=== PATIENT | female | born 1975 | race Two or more races ===

== ENCOUNTER → 2017-04-02 | Outpatient (CLI) | payer BC ==
[~2017-04-02] MED LIST: HYDR25TAB PO; LISI10TA4; LORT1TAB PO; VICO5TAB
--- NOTE | 2017-04-02 10:06 | REP ---
Clinical: Pain. Technique: AP, lateral, coned-down views of the lumbar spine. Findings: Three views of the lumbosacral spine demonstrate satisfactory alignment and lordosis without acute fracture / compression injury or subluxation. Impression: No acute fracture / compression injury or subluxation. Signed by Ayan Vera MD 04/02/2017 09:58 A
== END ==
LOC: M ADAMS 09:29
PROVIDERS: ATTEND Physician Assistant
DX: M54.5 Low back pain (principal)

== ENCOUNTER → 2017-07-09 | Outpatient (REF) | payer BC ==
[2017-07-09 11:00] LABS: ALBUMIN 3.6 GM/DL (3.2-5.2); ALKALINE PHOSPHATASE 80 U/L (45-117); ALT/SGPT 47 U/L (12-78); ANION GAP 9 MEQ/L (8-16); AST/SGOT 21 U/L (15-37); BILIRUBIN,TOTAL 0.5 MG/DL (0.2-1.0); BLOOD UREA NITROGEN 11 MG/DL (7-18); CALCIUM LEVEL 8.7 MG/DL (8.5-10.1); CARBON DIOXIDE LEVEL 27 MEQ/L (21-32); CHLORIDE LEVEL 106 MEQ/L (98-107); CREATININE FOR GFR 0.72 MG/DL (0.55-1.02); FREE T4 0.88 NG/DL (0.76-1.46); GLOMERULAR FILTRATION RATE > 60.0 (>58); GLUCOSE, FASTING 81 MG/DL (70-105); POTASSIUM SERUM 3.9 MEQ/L (3.5-5.1); SODIUM LEVEL 142 MEQ/L (136-145); TOTAL PROTEIN 7.2 GM/DL (6.4-8.2)
== END ==
LOC: M SFHCADAM 09:57
PROVIDERS: ATTEND Family Medicine
DX: I10 Essential (primary) hypertension (principal); F32.9 Major depressive disorder, single episode, unspecified

== ENCOUNTER → 2017-07-17 | Outpatient (CLI) | payer BC ==
--- NOTE | 2017-07-17 13:40 | REPMRS ---
Patient History The patient states she has not had a clinical breast exam in over a year. No known family history of cancer. Digital Mammo Screening Bilat: July 17, 2017 - Exam #: [id number] Bilateral CC and MLO view(s) were taken. Technologist: Bibiana Vazquez, Technologist Prior study comparison: August 08, 2009, right breast digital mammo diagnostic unilateral performed at [facility]. February 13, 2009, digital mammo diagnostic bilateral performed at [facility]. FINDINGS: There are scattered fibroglandular densities. There has been no change in the appearance of the mammogram from the prior studies. There is a mild amount of scattered fibroglandular density which is fairly symmetric. There is no interval development of dominant mass, architectural distortion, or clustered microcalcification suggestive of malignancy. ASSESSMENT: BI-RADS/ACR category 1 mammogram. Negative. Recommendation Routine screening mammogram in 1 year (for women over age 40). This mammogram was interpreted with the aid of an FDA-approved computer-aided dectection system. Electronically Signed By: Kristopher Tanner MD 07/17/17 2204
== END ==
LOC: M RAD 12:45
PROVIDERS: ATTEND Family Medicine
DX: Z12.31 Encounter for screening mammogram for malignant neoplasm of breast (principal)

== ENCOUNTER → 2017-12-16 | Outpatient (REF) | payer BC ==
[2017-12-16 14:40] LABS: INFLUENZA A AMPLIFICATION NEGATIVE (NEGATIVE); INFLUENZA B AMPLIFICATION NEGATIVE (NEGATIVE)
== END ==
LOC: M LAB REF 13:15
DX: Z11.59 Encounter for screening for other viral diseases (principal)
CPT/HCPCS: 87502

== ENCOUNTER → 2018-01-19 | Outpatient (CLI) | payer BC | LOC: M WUC 11:54 | DX: M25.511 Pain in right shoulder (principal) | CPT/HCPCS: 73030 ==

== ENCOUNTER → 2018-02-24 | Outpatient (CLI) | payer BC ==
[2018-02-24 19:46] LABS: ANION GAP 8 MEQ/L (8-16); BLOOD UREA NITROGEN 18 MG/DL (7-18); C REACTIVE PROTEIN QUANTITATIV 0.48 MG/DL (0.00-0.30); CALCIUM LEVEL 8.9 MG/DL (8.5-10.1); CARBON DIOXIDE LEVEL 26 MEQ/L (21-32); CHLORIDE LEVEL 106 MEQ/L (98-107); COMPLEMENT C4 26.3 MG/DL (10-40); CREATININE FOR GFR 0.89 MG/DL (0.55-1.30); FREE T3 3.4 PG/ML (2.2-4.0); GLOMERULAR FILTRATION RATE > 60.0 (>58); GLUCOSE, FASTING 118 MG/DL (70-100); IMMUNOGLOBULIN G 864 MG/DL (681-1648); IMMUNOGLOBULIN M 59.1 MG/DL (40-230); POTASSIUM SERUM 3.9 MEQ/L (3.5-5.1); RHEUMATOID FACTOR QUANT < 10.0 IU/ML (<15.0); SODIUM LEVEL 140 MEQ/L (136-145)
[2018-02-24 19:58] LABS: BASO # 0.1 10^3/uL (0.0-0.2); BASO % 0.5 % (0.0-1.0); EOS # 0.2 10^3/uL (0.0-0.50); EOS % 2.2 % (0.0-3.0); HEMATOCRIT 37.8 % (36.0-47.0); HEMOGLOBIN 12.3 g/dl (12.0-15.5); IMMATURE GRANULOCYTE % 0.3 % (0-3.0); LYMPH % 31.2 % (24.0-44.0); MEAN CORPUSCULAR HEMOGLOBIN 28.1 pg (27.0-33.0); MEAN CORPUSCULAR HGB CONC 32.5 g/dl (32.0-36.5); MEAN CORPUSCULAR VOLUME 86.3 fl (80.0-96.0); MONO # 0.6 10^3/uL (0.0-0.8); MONO % 6.2 % (0.0-5.0); NEUTROPHILS # 5.8 10^3/uL (1.8-7.7); NEUTROPHILS % 59.6 % (36.0-66.0); PLATELET COUNT, AUTOMATED 316 10^3/uL (150-450); RED BLOOD COUNT 4.38 10^6/uL (4.00-5.40); WHITE BLOOD COUNT 9.7 10^3/uL (4.0-10.0)
[2018-02-24 20:05] LABS: TOTAL 25(OH) VITAMIN D 13.4 NG/ML (30.0-100.0)
[2018-02-24 20:39] LABS: ERYTHROCYTE SEDIMENTATION RATE 30 mm/hr (0-20)
[2018-02-27 14:14] LABS: F003-IGE CODFISH 0.11 kU/L (Class 0/I); F004-IGE WHEAT 1.07 kU/L (Class II); F007-IGE OAT 0.17 kU/L (Class 0/I); F008-IGE CORN <0.10 kU/L (Class 0); F010-IGE SESAME SEED <0.10 kU/L (Class 0); F013-IGE PEANUT <0.10 kU/L (Class 0); F014-IGE SOYBEAN <0.10 kU/L (Class 0); F018-IGE BRAZIL NUT <0.10 kU/L (Class 0); F020-IGE ALMOND 0.15 kU/L (Class 0/I); F023-IGE CRAB 5.56 kU/L (Class IV); F024-IGE SHRIMP 5.55 kU/L (Class IV); F025-IGE TOMATO <0.10 kU/L (Class 0); F031-IGE CARROT <0.10 kU/L (Class 0); F037-IGE MUSSEL 0.47 kU/L (Class I); F076-IGE ALPHA LACTALBUMIN <0.10 kU/L (Class 0); F078-IGE CASEIN <0.10 kU/L (Class 0); F080-IGE LOBSTER 2.49 kU/L (Class III); F201-IGE PECAN NUT <0.10 kU/L (Class 0); F202-IGE CASHEW NUT <0.10 kU/L (Class 0); F203-IGE PISTACHIO NUT <0.10 kU/L (Class 0); F207-IGE CLAM 0.94 kU/L (Class II); F236-IGE WHEY 0.13 kU/L (Class 0/I); F245-IGE EGG, WHOLE <0.10 kU/L (Class 0); F256-IGE WALNUT <0.10 kU/L (Class 0); F283-IGE OREGANO <0.10 kU/L (Class 0); F290-IGE OYSTER 0.14 kU/L (Class 0/I); F339-IGE ALLSPICE <0.10 kU/L (Class 0); F345-IGE MACADAMIA NUT <0.10 kU/L (Class 0)
== END ==
LOC: M SMT 14:30
DX: D89.89 Other specified disorders involving the immune mechanism, not elsewhere classified (principal)
CPT/HCPCS: 82785

== ENCOUNTER → 2018-05-11 | Outpatient (CLI) | payer BC ==
[2018-05-11 18:07] LABS: TOTAL 25(OH) VITAMIN D 45.4 NG/ML (30.0-100.0)
[2018-05-18 14:13] LABS: STREP PNEUMO TYPE 1 >33.8 ug/mL (>1.3); STREP PNEUMO TYPE 12F 1.2 ug/mL (>1.3); STREP PNEUMO TYPE 14 >46.6 ug/mL (>1.3); STREP PNEUMO TYPE 18C >25.7 ug/mL (>1.3); STREP PNEUMO TYPE 19A 7.6 ug/mL (>1.3); STREP PNEUMO TYPE 19F 33.2 ug/mL (>1.3); STREP PNEUMO TYPE 23F 35.8 ug/mL (>1.3); STREP PNEUMO TYPE 3 1.5 ug/mL (>1.3); STREP PNEUMO TYPE 4 >38.0 ug/mL (>1.3); STREP PNEUMO TYPE 6B 14.4 ug/mL (>1.3); STREP PNEUMO TYPE 7F 19.8 ug/mL (>1.3); STREP PNEUMO TYPE 8 17.1 ug/mL (>1.3); STREP PNEUMO TYPE 9N >26.4 ug/mL (>1.3); STREP PNEUMO TYPE 9V 26.6 ug/mL (>1.3)
== END ==
LOC: M SMT 14:28
DX: D89.89 Other specified disorders involving the immune mechanism, not elsewhere classified (principal)
CPT/HCPCS: 82306

== ENCOUNTER → 2018-06-16 | Outpatient (CLI) | payer BC | LOC: M ADAMS 15:21 | DX: S60.222A Contusion of left hand, initial encounter (principal) | CPT/HCPCS: 73130 ==

== ENCOUNTER → 2018-06-23 | Outpatient (CLI) | payer BC ==
[~2018-06-23] MED LIST changes: +GASTROGRAFIN SOLUTION 30ML (Q9963) As Ordered; -HYDR25TAB PO; +ISOVUE-370 76% 100ML VIAL (Q9967) As Ordered; -LISI10TA4; -LORT1TAB PO; -VICO5TAB
== END ==
LOC: M RAD 14:14
DX: K43.2 Incisional hernia without obstruction or gangrene (principal)
CPT/HCPCS: Q9963

== ENCOUNTER → 2018-07-20 | Outpatient (CLI) | payer BC ==
[2018-07-20 14:03] LABS: APPEARANCE, URINE HAZY (CLEAR); BACTERIA, URINE AUTO NEGATIVE (NEGATIVE); BILIRUBIN, URINE AUTO NEGATIVE (NEGATIVE); BLOOD, URINE BLOOD NEGATIVE (NEGATIVE); COLOR, URINE YELLOW (YELLOW); GLUCOSE, URINE (UA) AUTO NEGATIVE (NEGATIVE); KETONE, URINE AUTO TRACE mg/dL (NEGATIVE); LEUKOCYTE ESTERASE, URINE AUTO NEGATIVE (NEGATIVE); MUCUS, URINE SMALL (NEGATIVE); NITRITE, URINE AUTO NEGATIVE (NEGATIVE); PROTEIN, URINE AUTO NEGATIVE (NEGATIVE); RBC, URINE AUTO 0 /HPF (0-3); SPECIFIC GRAVITY URINE AUTO 1.025 (1.002-1.035); SQUAMOUS EPITHELIAL CELL UR AU 11 /HPF (0-6); UROBILINOGEN, URINE AUTO 0.2 mg/dL (0.0-2.0); WBC, URINE AUTO 4 /HPF (0-3)
== END ==
LOC: M SMT 09:36
DX: N20.0 Calculus of kidney (principal)
CPT/HCPCS: 81001

== ENCOUNTER → 2018-07-27 | Outpatient (CLI) | payer BC ==
[2018-07-27 18:06] LABS: ANION GAP 7 MEQ/L (8-16); BLOOD UREA NITROGEN 20 MG/DL (7-18); CALCIUM LEVEL 8.9 MG/DL (8.5-10.1); CARBON DIOXIDE LEVEL 28 MEQ/L (21-32); CHLORIDE LEVEL 104 MEQ/L (98-107); GLOMERULAR FILTRATION RATE > 60.0 (>58); GLUCOSE, FASTING 67 MG/DL (70-100); POTASSIUM SERUM 4.3 MEQ/L (3.5-5.1); SODIUM LEVEL 139 MEQ/L (136-145)
[2018-07-27 18:11] LABS: HEMATOCRIT 37.5 % (36.0-47.0); HEMOGLOBIN 12.3 g/dl (12.0-15.5); INR 1.02; MEAN CORPUSCULAR HEMOGLOBIN 28.7 pg (27.0-33.0); MEAN CORPUSCULAR HGB CONC 32.8 g/dl (32.0-36.5); MEAN CORPUSCULAR VOLUME 87.4 fl (80.0-96.0); PLATELET COUNT, AUTOMATED 304 10^3/uL (150-450); PROTHROMBIN TIME 13.5 SECONDS (12.1-14.4); RED BLOOD COUNT 4.29 10^6/uL (4.00-5.40); RED CELL DISTRIBUTION WIDTH 13.2 % (11.5-14.5)
[2018-07-27 18:12] LABS: PARTIAL THROMBOPLASTIN TIME 32.4 SECONDS (25.4-37.6)
== END ==
LOC: M SMT 14:35
DX: Z01.818 Encounter for other preprocedural examination (principal); N20.0 Calculus of kidney
CPT/HCPCS: 80048

== ENCOUNTER 2018-07-30 06:07 | Day surgery (SDC) | payer BC ==
[2018-07-30] MEDS ORDERED: ONDANSETRON 4MG/2ML VIAL (J2405) As Ordered (07:20)
[2018-07-30] MEDS ORDERED: fentaNYL 100 MCG/2 ML INJECTION (J3010) As Ordered (07:20)
[2018-07-30] MEDS ORDERED: MIDAZOLAM INJ 2 MG/2 ML VIAL (J2250) As Ordered (07:21)
[2018-07-30] MEDS ORDERED: dexameTHASONE 4 MG/ML 1ML VIAL (J1100) As Ordered (07:47)
== END 2018-07-30 09:15 | disposition home or self-care (01) ==
LOC: M SDC 06:07
DX: N20.1 Calculus of ureter (principal); N20.0 Calculus of kidney; I10 Essential (primary) hypertension; Z79.899 Other long term (current) drug therapy; Z88.8 Allergy status to other drugs, medicaments and biological substances; Z91.013 Allergy to seafood
CPT/HCPCS: 50590

== ENCOUNTER → 2018-08-25 | Outpatient (CLI) | payer BC | LOC: M SMT 08:48 | DX: N20.0 Calculus of kidney (principal) | CPT/HCPCS: 74018 ==

== ENCOUNTER → 2018-08-25 | Outpatient (REF) | payer BC ==
[2018-08-25 13:27] LABS: AMORPHOUS SEDIMENT LARGE (NEGATIVE); APPEARANCE, URINE TURBID (CLEAR); BACTERIA, URINE AUTO NEGATIVE (NEGATIVE); BILIRUBIN, URINE AUTO NEGATIVE (NEGATIVE); BLOOD, URINE BLOOD NEGATIVE (NEGATIVE); COLOR, URINE AMBER (YELLOW); GLUCOSE, URINE (UA) AUTO NEGATIVE (NEGATIVE); KETONE, URINE AUTO NEGATIVE (NEGATIVE); LEUKOCYTE ESTERASE, URINE AUTO NEGATIVE (NEGATIVE); MUCUS, URINE SMALL (NEGATIVE); NITRITE, URINE AUTO NEGATIVE (NEGATIVE); PROTEIN, URINE AUTO NEGATIVE (NEGATIVE); RBC, URINE AUTO 1 /HPF (0-3); SPECIFIC GRAVITY URINE AUTO 1.024 (1.002-1.035); SQUAMOUS EPITHELIAL CELL UR AU 7 /HPF (0-6); UROBILINOGEN, URINE AUTO 0.2 mg/dL (0.0-2.0); WBC, URINE AUTO 0 /HPF (0-3)
== END ==
LOC: M SMT 12:55
DX: N20.0 Calculus of kidney (principal)
CPT/HCPCS: 81001

== ENCOUNTER → 2018-09-04 | Outpatient (CLI) | payer BC ==
[2018-09-04 17:31] LABS: ANION GAP 12 MEQ/L (8-16); BLOOD UREA NITROGEN 17 MG/DL (7-18); CALCIUM LEVEL 9.2 MG/DL (8.5-10.1); CARBON DIOXIDE LEVEL 28 MEQ/L (21-32); CHLORIDE LEVEL 107 MEQ/L (98-107); CREATININE FOR GFR 0.91 MG/DL (0.55-1.30); GLOMERULAR FILTRATION RATE > 60.0 (>58); GLUCOSE, FASTING 133 MG/DL (70-100); POTASSIUM SERUM 4.3 MEQ/L (3.5-5.1); SODIUM LEVEL 147 MEQ/L (136-145)
[2018-09-04 17:32] LABS: HEMATOCRIT 38.3 % (36.0-47.0); HEMOGLOBIN 12.6 g/dl (12.0-15.5); MEAN CORPUSCULAR HEMOGLOBIN 27.9 pg (27.0-33.0); MEAN CORPUSCULAR HGB CONC 32.9 g/dl (32.0-36.5); MEAN CORPUSCULAR VOLUME 84.7 fl (80.0-96.0); PLATELET COUNT, AUTOMATED 288 10^3/uL (150-450); RED BLOOD COUNT 4.52 10^6/uL (4.00-5.40); RED CELL DISTRIBUTION WIDTH 12.9 % (11.5-14.5); WHITE BLOOD COUNT 10.7 10^3/uL (4.0-10.0)
[2018-09-04 17:38] LABS: APPEARANCE, URINE HAZY (CLEAR); BACTERIA, URINE AUTO 1+ (NEGATIVE); BILIRUBIN, URINE AUTO NEGATIVE (NEGATIVE); BLOOD, URINE BLOOD 1+ (NEGATIVE); COLOR, URINE YELLOW (YELLOW); GLUCOSE, URINE (UA) AUTO NEGATIVE (NEGATIVE); KETONE, URINE AUTO NEGATIVE (NEGATIVE); LEUKOCYTE ESTERASE, URINE AUTO NEGATIVE (NEGATIVE); NITRITE, URINE AUTO NEGATIVE (NEGATIVE); PROTEIN, URINE AUTO NEGATIVE (NEGATIVE); RBC, URINE AUTO 4 /HPF (0-3); SPECIFIC GRAVITY URINE AUTO 1.013 (1.002-1.035); SQUAMOUS EPITHELIAL CELL UR AU 2 /HPF (0-6); UROBILINOGEN, URINE AUTO 0.2 mg/dL (0.0-2.0); WBC, URINE AUTO 4 /HPF (0-3)
[2018-09-04 17:43] LABS: INR 0.95; PROTHROMBIN TIME 12.8 SECONDS (12.1-14.4)
[2018-09-04 17:44] LABS: PARTIAL THROMBOPLASTIN TIME 32.5 SECONDS (25.4-37.6)
== END ==
LOC: M SMT 14:30
DX: N20.0 Calculus of kidney (principal)
CPT/HCPCS: 80048

== ENCOUNTER 2018-09-10 12:59 | Day surgery (SDC) | payer BC ==
[2018-09-10] MEDS: LR 1,000 ML IV (13:30)
[2018-09-10] MEDS ORDERED: PROPOFOL 200 MG/20 ML VIAL As Ordered (13:34)
[2018-09-10] MEDS ORDERED: LIDOCAINE 2% INJ 100 MG/5 ML SDV (FOR ANES.) As Ordered (13:34)
[2018-09-10] MEDS ORDERED: ONDANSETRON 4MG/2ML VIAL (J2405) As Ordered (13:34)
[2018-09-10] MEDS ORDERED: fentaNYL 250 MCG/5 ML INJECTION (J3010) As Ordered (13:35)
[2018-09-10] MEDS ORDERED: dexameTHASONE 4 MG/ML 1ML VIAL (J1100) As Ordered (13:35)
[2018-09-10] MEDS ORDERED: MIDAZOLAM INJ 2 MG/2 ML VIAL (J2250) As Ordered (13:35)
[2018-09-10] MEDS: CONRAY-60 60% 50ML VIAL (Q9961) As Ordered (16:33)
[2018-09-10] MEDS ORDERED: MORPHINE 10 MG/ML 1ML VIAL (J2270) IV (17:30)
[2018-09-10] MEDS ORDERED: LR 1,000 ML IV (17:30)
[2018-09-10] MEDS ORDERED: ONDANSETRON 4MG/2ML VIAL (J2405) IV (17:30)
[2018-09-10] MEDS ORDERED: PERCOCET 5MG/325MG TAB PO ×2 (17:30)
[2018-09-10] MEDS ORDERED: fentaNYL 100 MCG/2 ML INJECTION (J3010) IV (17:30)
[2018-09-10] MEDS: PERCOCET 5MG/325MG TAB PO (18:13)
== END 2018-09-10 18:25 | disposition home or self-care (01) ==
LOC: M SDC 12:59
DX: N20.1 Calculus of ureter (principal); N20.0 Calculus of kidney; I10 Essential (primary) hypertension; Z91.013 Allergy to seafood; Z88.8 Allergy status to other drugs, medicaments and biological substances; Z79.899 Other long term (current) drug therapy
CPT/HCPCS: 52356

== ENCOUNTER 2018-09-16 05:54 | Day surgery (SDC) | payer BC ==
[2018-09-16] MEDS ORDERED: LIDOCAINE 1% MDV 20ML VIAL SQ (06:00)
[2018-09-16] MEDS: LR 1,000 ML IV (06:35)
[2018-09-16] MEDS ORDERED: ROCURONIUM BROMIDE 50 MG/5 ML VIAL As Ordered ×2 (07:21→09:43)
[2018-09-16] MEDS ORDERED: LIDOCAINE 2% INJ 100 MG/5 ML SDV (FOR ANES.) As Ordered (07:21)
[2018-09-16] MEDS ORDERED: PROPOFOL 200 MG/20 ML VIAL As Ordered (07:21)
[2018-09-16] MEDS ORDERED: dexameTHASONE 4 MG/ML 1ML VIAL (J1100) As Ordered (07:21)
[2018-09-16] MEDS ORDERED: fentaNYL 250 MCG/5 ML INJECTION (J3010) As Ordered (07:21)
[2018-09-16] MEDS ORDERED: MIDAZOLAM INJ 2 MG/2 ML VIAL (J2250) As Ordered (07:21)
[2018-09-16] MEDS ORDERED: ONDANSETRON 4MG/2ML VIAL (J2405) As Ordered (07:21)
[2018-09-16] MEDS ORDERED: PHENYLephrine HCL 500 MCG/5 ML (100MCG/ML) SYRINGE (J2370) As Ordered (07:43)
[2018-09-16] MEDS: BUPIVACAINE HCL 0.25% 30 ML VIAL As Ordered (08:15)
[2018-09-16] MEDS: LIDOCAINE 1% SDV INJ 30 ML VIAL As Ordered (08:15)
[2018-09-16] MEDS ORDERED: SEVOFLURANE INHAL SOLN 250 ML BTL As Ordered (08:51)
[2018-09-16] MEDS ORDERED: GLYCOPYRROLATE INJ 0.2 MG/ML 2 ML VIAL As Ordered (08:54)
[2018-09-16] MEDS ORDERED: KETOROLAC 60 MG/2 ML VIAL (J1885) As Ordered (08:54)
[2018-09-16] MEDS ORDERED: NEOSTIGMINE 10 MG/10 ML VIAL (J2710) As Ordered (08:54)
[2018-09-16] MEDS ORDERED: HYDROmorphone HCL 2 MG/ML 1ML VIAL (J1170) As Ordered (08:54)
[2018-09-16] MEDS ORDERED: PERCOCET 5MG/325MG TAB As Ordered (11:03)
[2018-09-16] MEDS: PERCOCET 5MG/325MG TAB PO (11:05)
[2018-09-16] MEDS ORDERED: fentaNYL 100 MCG/2 ML INJECTION (J3010) IV (11:15)
[2018-09-16] MEDS ORDERED: MEPERIDINE INJ 25 MG/ML VIAL (J2175) IV (11:15)
[2018-09-16] MEDS ORDERED: LR 1,000 ML IV (11:15)
[2018-09-16] MEDS ORDERED: METOCLOPRAMIDE INJ 10MG/2ML VIAL (J2765) IV (11:15)
[2018-09-16] MEDS ORDERED: ONDANSETRON 4MG/2ML VIAL (J2405) IV ×2 (11:15→11:30)
[2018-09-16] MEDS ORDERED: NORCO, ANEXSIA 5/325MG TABLET (HYDROcodone/ACETAMINOPHEN) PO ×2 (11:30)
[2018-09-16] MEDS ORDERED: KETOROLAC 30 MG/ML VIAL (J1885) IV (15:00)
== END 2018-09-16 13:05 | disposition home or self-care (01) ==
LOC: M SDC 05:54
DX: K43.2 Incisional hernia without obstruction or gangrene (principal); N73.9 Female pelvic inflammatory disease, unspecified; M62.08 Separation of muscle (nontraumatic), other site; N13.2 Hydronephrosis with renal and ureteral calculous obstruction; I10 Essential (primary) hypertension; E66.9 Obesity, unspecified; Z68.33 Body mass index [BMI] 33.0-33.9, adult; Z88.8 Allergy status to other drugs, medicaments and biological substances; Z91.013 Allergy to seafood; Z79.899 Other long term (current) drug therapy; Z87.442 Personal history of urinary calculi; Z90.710 Acquired absence of both cervix and uterus
CPT/HCPCS: 49652

== ENCOUNTER → 2019-01-04 | Outpatient (REF) | payer BC ==
[~2019-01-04] MED LIST changes: +AMLO5TAB6 PO; +FLOM0.4C39 PO; -GASTROGRAFIN SOLUTION 30ML (Q9963) As Ordered; +HYDR25TAB PO; -ISOVUE-370 76% 100ML VIAL (Q9967) As Ordered; +LISI10TA4; +LORT1TAB PO; +LOSA100T50 PO; +TYLE650T35 PO; +VICO5TAB; +ZYRT10CA5 PO
[2019-01-04 11:15] LABS: BASO % 0.6 % (0.0-1.0); EOS # 0.3 10^3/uL (0.0-0.50); EOS % 3.4 % (0.0-3.0); HEMATOCRIT 40.6 % (36.0-47.0); LYMPH # 2.5 10^3/uL (1.5-4.5); LYMPH % 34.5 % (24.0-44.0); MEAN CORPUSCULAR HEMOGLOBIN 27.4 pg (27.0-33.0); MEAN CORPUSCULAR VOLUME 85.7 fl (80.0-96.0); MONO # 0.4 10^3/uL (0.0-0.8); MONO % 5.8 % (0.0-5.0); NEUTROPHILS % 55.4 % (36.0-66.0); PLATELET COUNT, AUTOMATED 265 10^3/uL (150-450); RED BLOOD COUNT 4.74 10^6/uL (4.00-5.40); WHITE BLOOD COUNT 7.3 10^3/uL (4.0-10.0)
[2019-01-04 11:44] LABS: ALBUMIN 3.7 GM/DL (3.2-5.2); ALT/SGPT 67 U/L (12-78); BILIRUBIN,TOTAL 0.4 MG/DL (0.2-1.0); BLOOD UREA NITROGEN 14 MG/DL (7-18); CALCIUM LEVEL 8.6 MG/DL (8.5-10.1); CARBON DIOXIDE LEVEL 27 MEQ/L (21-32); CHLORIDE LEVEL 108 MEQ/L (98-107); CHOLESTEROL LEVEL 207 MG/DL (<200); CHOLESTEROL RISK RATIO 3.696 (<5); CREATININE FOR GFR 0.75 MG/DL (0.55-1.30); GLOMERULAR FILTRATION RATE > 60.0 (>58); GLUCOSE, FASTING 89 MG/DL (70-100); HDL CHOLESTEROL 56 MG/DL (>40); LDL CHOLESTEROL 129 MG/DL (<100); NON-HDL-C 151 MG/DL; SODIUM LEVEL 141 MEQ/L (136-145); TOTAL PROTEIN 6.8 GM/DL (6.4-8.2); TRIGLYCERIDES LEVEL 112 MG/DL (<150)
== END ==
LOC: M SFHCADAM 09:27
PROVIDERS: ATTEND Family Medicine
DX: E66.9 Obesity, unspecified (principal)

== ENCOUNTER → 2019-01-14 | Outpatient (CLI) | payer BC ==
[~2019-01-14] MED LIST changes: +HYDR-2541 PO; -HYDR25TAB PO
--- NOTE | 2019-01-14 17:50 | REPMRS ---
Patient History The patient states she has not had a clinical breast exam in over a year. No known family history of cancer. Digital Mammo Screening Bilat: January 14, 2019 - Exam #: [id number] Bilateral CC and MLO view(s) were taken. Technologist: Deandra Dodd, Technologist Prior study comparison: July 17, 2017, bilateral digital mammo screening bilat performed at [facility]. 2014, digital bilateral screening mammo, performed at [facility]. August 08, 2009, right breast digital mammo diagnostic unilateral performed at [facility]. February 13, 2009, digital mammo diagnostic bilateral performed at [facility]. FINDINGS: There are scattered fibroglandular densities. There is a stable benign nodular opacity again noted in the upper outer quadrant of the right breast unchanged from multiple prior studies. There has been no change in the appearance of the mammogram from the prior studies. There is a mild amount of scattered fibroglandular density which is fairly symmetric. There is no interval development of dominant mass, architectural distortion, or clustered microcalcification suggestive of malignancy. 3-D tomosynthesis shows no additional findings. Assessment: BI-RADS/ACR category 2 mammogram. Benign Findings. Recommendation Routine screening mammogram of both breasts in 1 year (for women over age 40). This patient's Lifetime Breast Cancer RIsk is estimated at 8.4 %. This mammogram was interpreted with the aid of an FDA-approved computer-aided dectection system. Electronically Signed By: Kristopher Tanner MD 01/14/19 [id number]
== END ==
LOC: M RAD 14:44
PROVIDERS: ATTEND Family Medicine
DX: Z12.31 Encounter for screening mammogram for malignant neoplasm of breast (principal)

== ENCOUNTER → 2019-03-09 | Outpatient (REF) | payer BC ==
[2019-03-13 00:06] LABS: ANCA-ATYPICAL <1:20 titer (Neg:<1:20); CYTOPLASMIC NEUTROP AB ANCA-C <1:20 titer (Neg:<1:20); PERINUCLEAR AB ANCA-P <1:20 titer (Neg:<1:20)
== END ==
LOC: M LABDRWAD 19:16
PROVIDERS: ATTEND Internal Medicine Rheumatology
DX: R79.89 Other specified abnormal findings of blood chemistry (principal); M65.821 Other synovitis and tenosynovitis, right upper arm; L50.8 Other urticaria; R52 Pain, unspecified

== ENCOUNTER → 2019-11-23 | Outpatient (REF) | payer BC ==
[2019-11-23 13:31] LABS: BASO % 0.5 % (0.0-1.0); EOS # 0.2 10^3/uL (0.0-0.5); EOS % 2.3 % (0.0-3.0); HEMATOCRIT 39.5 % (36.0-47.0); HEMOGLOBIN 12.5 g/dl (12.0-15.5); LYMPH # 2.4 10^3/uL (1.5-5.0); LYMPH % 32.4 % (24.0-44.0); MEAN CORPUSCULAR HGB CONC 31.6 g/dl (32.0-36.5); MEAN CORPUSCULAR VOLUME 85.3 fl (80.0-96.0); MONO # 0.4 10^3/uL (0.0-0.8); NEUTROPHILS # 4.5 10^3/uL (1.5-8.5); NEUTROPHILS % 59.5 % (36.0-66.0); PLATELET COUNT, AUTOMATED 280 10^3/uL (150-450); RED BLOOD COUNT 4.63 10^6/uL (4.00-5.40); WHITE BLOOD COUNT 7.5 10^3/uL (4.0-10.0)
[2019-11-23 13:50] LABS: ALBUMIN 3.7 GM/DL (3.2-5.2); ALT/SGPT 54 U/L (12-78); BILIRUBIN,TOTAL 0.5 MG/DL (0.2-1.0); BLOOD UREA NITROGEN 11 MG/DL (7-18); CALCIUM LEVEL 8.7 MG/DL (8.5-10.1); CARBON DIOXIDE LEVEL 29 MEQ/L (21-32); CHLORIDE LEVEL 107 MEQ/L (98-107); CHOLESTEROL LEVEL 228 MG/DL (<200); CHOLESTEROL RISK RATIO 4.145 (<5); FREE T4 0.95 NG/DL (0.76-1.46); GLOMERULAR FILTRATION RATE > 60.0 (>58); GLUCOSE, FASTING 145 MG/DL (70-100); HDL CHOLESTEROL 55 MG/DL (>40); LDL CHOLESTEROL 119 MG/DL (<100); NON-HDL-C 173 MG/DL; SODIUM LEVEL 141 MEQ/L (136-145); THYROID STIMULATING HORMONE 0.559 uIU/ML (0.358-3.740); TOTAL PROTEIN 6.9 GM/DL (6.4-8.2); TRIGLYCERIDES LEVEL 271 MG/DL (<150)
== END ==
LOC: M SFHCADAM 09:44
PROVIDERS: ATTEND Family Medicine
DX: Z00.00 Encounter for general adult medical examination without abnormal findings (principal); E66.9 Obesity, unspecified

== ENCOUNTER → 2020-04-10 | Outpatient (CLI) | payer BC ==
[~2020-04-10] MED LIST changes: +ACET650T61 PO; +AMLO1TAB24 PO; -AMLO5TAB6 PO; -TYLE650T35 PO
== END ==
LOC: M LABSMTC 13:42
PROVIDERS: ATTEND Pediatrics
DX: Z11.59 Encounter for screening for other viral diseases (principal)
CPT/HCPCS: C9803; U0002

== ENCOUNTER → 2020-05-03 | Outpatient (CLI) | payer BC ==
--- NOTE | 2020-05-28 09:24 | REPMRS ---
Patient History The patient states she has not had a clinical breast exam in over a year. Family history of pancreatic cancer at age 50 or over in maternal grandmother, pancreatic cancer at age 50 or over in maternal aunt. No Hormone Replacement Therapy Digital Woman Screen Mammo: May 03, 2020 - Exam #: [id number] Bilateral CC and MLO view(s) were taken. Technologist: Clare Boo, Technologist Prior study comparison: January 14, 2019, bilateral digital mammo screening bilat, performed at [facility]. July 17, 2017, bilateral digital mammo screening bilat, performed at [facility]. 2014, digital bilateral screening mammo, performed at [facility]. FINDINGS: There are scattered fibroglandular densities. The Volpara volumetric breast density category is:B. There has been no change in the appearance of the mammogram from the prior studies. There is a mild amount of scattered fibroglandular density which is fairly symmetric. There is no interval development of dominant mass, architectural distortion, or grouped microcalcification suggestive of malignancy. 3-D tomosynthesis shows no additional findings. Report was delayed due to a protracted computer network disruption experienced by this facility. Assessment: BI-RADS/ACR category 1 mammogram. Negative Mammogram. Recommendation Routine screening mammogram of both breasts in 1 year (for women over age 40). This patient's Lifetime Breast Cancer Risk is estimated at 8.3 %. This mammogram was interpreted with the aid of an FDA-approved computer-aided dectection system. Electronically Signed By: Kristopher Tanner MD 05/28/20 0965
== END ==
LOC: M WHC 17:23
PROVIDERS: ATTEND Family Medicine
DX: Z12.31 Encounter for screening mammogram for malignant neoplasm of breast (principal)

== ENCOUNTER → 2020-07-31 | Outpatient (CLI) | payer BC ==
--- NOTE | 2020-08-02 06:43 | REP ---
INDICATION: PAIN IN RIGHT KNEE COMPARISON: None. TECHNIQUE: AP, lateral, bilateral oblique and sunrise views. FINDINGS: The osseous structures and joint spaces are intact and normal. There is no evidence for acute fracture or dislocation. No joint effusion is appreciated. Surrounding soft tissues are unremarkable. No subcutaneous emphysema or radiodense foreign body. IMPRESSION: Normal examination. No acute fracture or dislocation. <Electronically signed by Ayan Vera > 08/02/20 0693
== END ==
LOC: M ADAMS 13:11
PROVIDERS: ATTEND Physician Assistant
DX: M25.561 Pain in right knee (principal)

== ENCOUNTER → 2020-10-28 | Outpatient (REF) | payer SELFPAY | LOC: M LABSMTC 09:27 → EDSTATUS 09:45 | PROVIDERS: ATTEND Pediatrics | DX: Z20.822 Contact with and (suspected) exposure to COVID-19 (principal) ==

== ENCOUNTER → 2021-05-25 | Outpatient (CLI) | payer BC ==
--- NOTE | 2021-05-25 14:03 | REP ---
INDICATION: KIDNEY STONE COMPARISON: 06/23/2018. TECHNIQUE: CT Scan of the abdomen and pelvis was performed without intravenous contrast. Sagittal and coronal reconstruction images performed. FINDINGS: Lung bases: Unremarkable. Liver: Grossly unremarkable. Gallbladder: Prior cholecystectomy. Spleen: Grossly unremarkable. Adrenals: Normal. Pancreas: Grossly unremarkable.. Kidneys: No hydronephrosis. There is a 6 mm calculus in the lower pole the left kidney. Ureters demonstrate no dilatation or calculus. Small and large bowel: Grossly unremarkable. Free fluid: None. Abdominal aorta: No aneurysm. Adenopathy: None. Appendix: Not inflamed. Osseous structures: Unremarkable. Pelvis: No mass. The ovaries appear normal. No bladder calculus seen. Prior hysterectomy. IMPRESSION: Intrarenal calculus lower pole left kidney measures 6 mm in diameter. No ureteral or bladder calculus. No hydroureteronephrosis. <Electronically signed by Stanley Gallo > 05/25/21 [id number]
== END ==
LOC: M PLAIMG 09:22
PROVIDERS: ATTEND Urology
DX: N20.0 Calculus of kidney (principal)

== ENCOUNTER → 2021-05-28 | Outpatient (CLI) | payer BC ==
--- NOTE | 2021-05-28 11:22 | REP ---
INDICATION: PAIN IN LEFT FOOT. COMPARISON: None. FINDINGS: The joint spaces are symmetric and relatively well maintained. There is no evidence of acute fracture or destructive osseous lesion. Plantar and retrocalcaneal heel spurs are present. There does appear to be a small amount of soft tissue swelling along the dorsal surface at the level of the midfoot. IMPRESSION: Possible soft tissue swelling. This needs to be correlated clinically. <Electronically signed by Adebayo Shen > 05/28/21 0038
== END ==
LOC: M PLAIMG 10:21
PROVIDERS: ATTEND Physician Assistant
DX: M79.672 Pain in left foot (principal)

== ENCOUNTER → 2021-07-02 | Outpatient (CLI) | payer BC ==
[~2021-07-02] MED LIST changes: +CETI10CH PO
[2021-07-02 17:03] LABS: HEMATOCRIT 36.4 % (36.0-47.0); HEMOGLOBIN 11.9 g/dl (12.0-15.5); MEAN CORPUSCULAR HEMOGLOBIN 27.7 pg (27.0-33.0); MEAN CORPUSCULAR HGB CONC 32.7 g/dl (32.0-36.5); MEAN CORPUSCULAR VOLUME 84.8 fl (80.0-96.0); PLATELET COUNT, AUTOMATED 237 10^3/uL (150-450); RED BLOOD COUNT 4.29 10^6/uL (4.00-5.40); WHITE BLOOD COUNT 8.8 10^3/uL (4.0-10.0)
[2021-07-02 17:17] LABS: BLOOD UREA NITROGEN 14 MG/DL (7-18); CALCIUM LEVEL 8.8 MG/DL (8.5-10.1); CARBON DIOXIDE LEVEL 30 MEQ/L (21-32); CHLORIDE LEVEL 107 MEQ/L (98-107); CREATININE FOR GFR 0.69 MG/DL (0.55-1.30); GLOMERULAR FILTRATION RATE > 60.0 (>58); GLUCOSE, FASTING 130 MG/DL (70-100); POTASSIUM SERUM 3.9 MEQ/L (3.5-5.1); SODIUM LEVEL 140 MEQ/L (136-145)
== END ==
LOC: M PLAIMG 15:43
PROVIDERS: ATTEND Urology
DX: N20.0 Calculus of kidney (principal)

== ENCOUNTER → 2021-07-07 | Outpatient (CLI) | payer BC | LOC: M LABSMTC 09:04 | PROVIDERS: ATTEND Anesthesiology | DX: Z01.812 Encounter for preprocedural laboratory examination (principal); Z20.822 Contact with and (suspected) exposure to COVID-19 ==

== ENCOUNTER → 2021-07-08 | Outpatient (CLI) | payer BC ==
--- NOTE | 2021-07-08 11:13 | REP ---
INDICATION: CALCULUS OF KIDNEY/EKG 1ST, RAD 2ND. COMPARISON: No comparison chest x-ray. TECHNIQUE: Two views.. FINDINGS: The lungs are well inflated and free of infiltrate. The pleural angles are sharp. The heart size is normal. Pulmonary vasculature is not increased. No significant bony abnormality is seen. IMPRESSION: Negative chest x-ray. <Electronically signed by Kristopher Tanner > 07/08/21 [id number]
--- NOTE | 2021-07-08 15:15 | ECGEPIP ---
[facility] Test Date: 2021-07-08 Pat Name: ANA MILES Department: Room: - Gender: Female Home Care Scheduler: MARLEN : 1975 Requested By: FENG Jordan Order Number: [id number] Reading MD: Angel Amezquita Measurements Intervals [place] Rate: 85 P: 57 WA: 166 QRS: 69 QRSD: 86 T: 61 QT: 352 QTc: 418 Interpretive Statements Normal sinus rhythm, Within normal limits. No significant change compared with 07/30/2018. Electronically Signed on 07-08-2021 15:15:31 EDT by Angel Amezquita
== END ==
LOC: M EKG 10:30
PROVIDERS: ATTEND Urology
DX: Z01.818 Encounter for other preprocedural examination (principal); N20.0 Calculus of kidney

== ENCOUNTER 2021-07-12 06:30 | Day surgery (SDC) | payer BC ==
[~2021-07-12] VITALS: Ht 157.5 cm; Wt 97.1 kg
[~2021-07-12 06:30] MED LIST changes: +LIDOCAINE 1% MDV 20ML VIAL SQ PRN; +LR 1,000 ML IV ONE; +ceFAZolin SOD 2 GM in IV 1 EA IV ONE
[2021-07-12] MEDS ORDERED: dexameTHASONE 4 MG/ML 1ML VIAL (J1100 PER 1MG) As Ordered ONE (08:17)
[2021-07-12] MEDS ORDERED: MIDAZOLAM INJ 2MG/2ML VIAL (J2250 PER 1MG) As Ordered ONE (08:17)
[2021-07-12] MEDS ORDERED: LIDOCAINE 2% 100MG/5ML SDV (FOR ANES.) As Ordered ONE (08:17)
[2021-07-12] MEDS ORDERED: fentaNYL 100 MCG/2 ML INJECTION (J3010) As Ordered ONE (08:17)
[2021-07-12] MEDS ORDERED: ONDANSETRON 4MG/2ML VIAL As Ordered ONE (08:17)
[2021-07-12] MEDS ORDERED: propofoL 200 MG/20 ML VIAL As Ordered ONE (08:17)
[2021-07-12] MEDS ORDERED: FLOM0.4C39 PO (08:46)
[2021-07-12] MEDS ORDERED: OXYC1TAB23 PO (08:46)
--- NOTE | 2021-07-12 09:56 | RO ---
OPERATIVE NOTE DATE OF OPERATION: 07/12/2021 PREOPERATIVE DIAGNOSIS: Left kidney stone. POSTOPERATIVE DIAGNOSIS: Left kidney stone. PROCEDURE: Left extracorporeal shock wave lithotripsy. SURGEON: Bony Nunez MD SUPERVISOR SHRIMP POND: None ANESTHESIA: MAC. OPERATIVE INDICATIONS: This is a 46-year-old female with an approximately 7-mm nonobstructing lower pole left kidney stone. She is brought to the operating room today for treatment. DESCRIPTION OF PROCEDURE: The patient was brought to the operating room and MAC anesthesia was administered. Prophylactic antibiotics were infused. She was placed in the supine position in preparation for a left-sided extracorporeal shock wave lithotripsy. Fluoroscopy and ultrasonography were utilized to monitor stone position and fragmentation throughout the procedure. Shock waves delivered to the left-sided kidney stone ungated. There was no arrhythmias. The stone did appear to fragment well. After delivery of 2,500 shocks, the procedure was concluded. The patient was then awakened from anesthesia and transported to the recovery room in stable condition. ESTIMATED BLOOD LOSS: Zero mL. COMPLICATIONS: None. SPECIMEN: None. PLAN: The patient will follow up in the urology clinic in a few weeks with imaging prior to assess for residual stone burden. PRIMO
== END 2021-07-12 10:20 | disposition home or self-care (01) ==
LOC: M SDC 06:30
PROVIDERS: ATTEND Urology
DX: N20.0 Calculus of kidney (principal); I10 Essential (primary) hypertension; M06.9 Rheumatoid arthritis, unspecified; Z79.899 Other long term (current) drug therapy; Z88.8 Allergy status to other drugs, medicaments and biological substances; Z91.013 Allergy to seafood
CPT/HCPCS: 50590; 74018; J0690; J1100; J2250; J2405; J3010

== ENCOUNTER → 2021-08-13 | Outpatient (CLI) | payer BC ==
[~2021-08-13] MED LIST changes: -LIDOCAINE 1% MDV 20ML VIAL SQ PRN; -LR 1,000 ML IV ONE; +OXYC1TAB23 PO; -ceFAZolin SOD 2 GM in IV 1 EA IV ONE
--- NOTE | 2021-08-13 16:39 | REP ---
INDICATION: CALCULUS OF KIDNEY. COMPARISON: 07/12/2021 FINDINGS: KUB shows the intestinal gas pattern to be nonspecific. The organ silhouettes insofar as delineated are unremarkable. There is no evidence of free intraperitoneal air. Bowel content obscures the nephric silhouettes. There are pelvic calcifications which are unchanged and having the appearance of phleboliths. IMPRESSION: Nonspecific. <Electronically signed by Adebayo Shen > 08/13/21 [id number]
== END ==
LOC: M PLAIMG 15:36
PROVIDERS: ATTEND Urology
DX: N20.0 Calculus of kidney (principal)

== ENCOUNTER → 2021-08-23 | Outpatient (CLI) | payer BC ==
--- NOTE | 2021-08-23 14:41 | REP ---
INDICATION: KIDNEY STONE COMPARISON: 05/25/2021 TECHNIQUE: Axial noncontrast images from the lung bases to the pubic symphysis with coronal and sagittal reformations. This CT examination was performed using the following dose reduction techniques: Automated exposure control, adjustment of mA and/or kv according to the patient's size, and use of iterative reconstruction technique. FINDINGS: There is a 6 mm nonobstructing left renal calculus along with 3 mm calculus in the mid left ureter (image 80). Right kidney/ureter and bladder are normal. Hepatosteatosis. Spleen, pancreas, and bilateral adrenal glands are normal. Prior cholecystectomy. The enteric system is without obstruction or acute inflammatory process. Normal terminal ileum and appendix identified in the right lower quadrant. Scattered sigmoid diverticula noted without acute diverticulitis. Pelvis demonstrates normal bladder and evidence for prior hysterectomy. No ascites. No free air. No adenopathy. Abdominal aorta without aneurysm. Musculoskeletal structures are intact IMPRESSION: 1. 6 mm nonobstructing left renal calculus and 3 mm left ureteral calculus identified without associated hydronephrosis or perinephric stranding. Remainder of the urinary tract system is normal. <Electronically signed by Ayan Vera > 08/23/21 [id number]
== END ==
LOC: M PLAIMG 13:18
PROVIDERS: ATTEND Nurse Practitioner Women's Health
DX: N20.0 Calculus of kidney (principal)

== ENCOUNTER → 2021-10-01 | Outpatient (CLI) | payer BC ==
[~2021-10-01] MED LIST changes: +LOSA100T45 PO; -LOSA100T50 PO; +OXYB5TAB10 PO; +PERCOCET PO
[2021-10-01 07:23] LABS: HEMATOCRIT 39.9 % (36.0-47.0); HEMOGLOBIN 12.9 g/dl (12.0-15.5); MEAN CORPUSCULAR HEMOGLOBIN 27.7 pg (27.0-33.0); MEAN CORPUSCULAR HGB CONC 32.3 g/dl (32.0-36.5); MEAN CORPUSCULAR VOLUME 85.6 fl (80.0-96.0); PLATELET COUNT, AUTOMATED 250 10^3/uL (150-450); RED BLOOD COUNT 4.66 10^6/uL (4.00-5.40); WHITE BLOOD COUNT 5.6 10^3/uL (4.0-10.0)
[2021-10-01 07:38] LABS: APPEARANCE, URINE HAZY (CLEAR); BACTERIA, URINE AUTO NEGATIVE (NEGATIVE); BILIRUBIN, URINE AUTO NEGATIVE (NEGATIVE); BLOOD, URINE BLOOD NEGATIVE (NEGATIVE); COLOR, URINE AMBER (YELLOW); GLUCOSE, URINE (UA) AUTO NEGATIVE (NEGATIVE); INR 0.97; KETONE, URINE AUTO TRACE mg/dL (NEGATIVE); LEUKOCYTE ESTERASE, URINE AUTO NEGATIVE (NEGATIVE); MUCUS, URINE SMALL (NEGATIVE); NITRITE, URINE AUTO NEGATIVE (NEGATIVE); PROTEIN, URINE AUTO NEGATIVE (NEGATIVE); PROTHROMBIN TIME 13.3 SECONDS (12.7-14.5); RBC, URINE AUTO 1 /HPF (0-3); SPECIFIC GRAVITY URINE AUTO 1.019 (1.002-1.035); SQUAMOUS EPITHELIAL CELL UR AU 17 /HPF (0-6); UROBILINOGEN, URINE AUTO 0.2 mg/dL (0.0-2.0); WBC, URINE AUTO 4 /HPF (0-3)
[2021-10-01 08:36] LABS: BLOOD UREA NITROGEN 10 MG/DL (7-18); CALCIUM LEVEL 8.9 MG/DL (8.5-10.1); CARBON DIOXIDE LEVEL 29 MEQ/L (21-32); CHLORIDE LEVEL 108 MEQ/L (98-107); CREATININE FOR GFR 0.67 MG/DL (0.55-1.30); GLOMERULAR FILTRATION RATE > 60.0 (>58); GLUCOSE, FASTING 110 MG/DL (70-100); POTASSIUM SERUM 3.9 MEQ/L (3.5-5.1); SODIUM LEVEL 141 MEQ/L (136-145)
== END ==
LOC: M LAB 06:39
PROVIDERS: ATTEND Nurse Practitioner Women's Health
DX: Z01.818 Encounter for other preprocedural examination (principal); N20.0 Calculus of kidney

== ENCOUNTER → 2021-10-03 | Outpatient (CLI) | payer BC ==
[~2021-10-03] MED LIST changes: -LOSA100T45 PO; +LOSA100T50 PO
== END ==
LOC: M LABSMTC 10:14
PROVIDERS: ATTEND Anesthesiology
DX: Z01.812 Encounter for preprocedural laboratory examination (principal); Z11.52 Encounter for screening for COVID-19

== ENCOUNTER 2021-10-08 06:08 | Day surgery (SDC) | payer BC ==
[~2021-10-08] VITALS: Ht 157.5 cm; Wt 95.3 kg
[~2021-10-08 06:08] MED LIST changes: +LIDOCAINE 1% MDV 20ML VIAL SQ PRN; +LR 1,000 ML IV SCH; -OXYB5TAB10 PO; -PERCOCET PO; +ceFAZolin SOD 2 GM in IV 1 EA IV SCH
[2021-10-08] MEDS ORDERED: ONDANSETRON 4MG/2ML VIAL As Ordered ONE (07:10)
[2021-10-08] MEDS ORDERED: dexameTHASONE 4 MG/ML 1ML VIAL (J1100 PER 1MG) As Ordered ONE (07:10)
[2021-10-08] MEDS ORDERED: MIDAZOLAM INJ 2MG/2ML VIAL (J2250 PER 1MG) As Ordered ONE (07:10)
[2021-10-08] MEDS ORDERED: fentaNYL 250 MCG/5 ML INJECTION (J3010) As Ordered ONE (07:10)
[2021-10-08] MEDS ORDERED: propofoL 200 MG/20 ML VIAL As Ordered ONE (07:10)
[2021-10-08] MEDS ORDERED: LIDOCAINE 2% 100MG/5ML SDV (FOR ANES.) As Ordered ONE (07:10)
[2021-10-08] MEDS ORDERED: CONRAY-60 60% 50ML VIAL (Q9961) As Ordered ONE (07:15)
[2021-10-08] MEDS ORDERED: PERCOCET 5MG/325MG TAB PO PRN ×2 (08:30→08:35)
[2021-10-08] MEDS ORDERED: ONDANSETRON 4MG/2ML VIAL IV PRN (08:30)
[2021-10-08] MEDS ORDERED: LR 1,000 ML IV SCH (08:30)
[2021-10-08] MEDS ORDERED: fentaNYL 100 MCG/2 ML INJECTION (J3010) IV PRN (08:30)
[2021-10-08] MEDS ORDERED: oxyBUTYnin 5 MG TAB PO PRN (08:35)
--- NOTE | 2021-10-08 08:44 | RO ---
OPERATIVE NOTE DATE OF OPERATION: 10/08/2021 PREOPERATIVE DIAGNOSIS: Left kidney and ureteral stones. POSTOPERATIVE DIAGNOSIS: Left kidney stones. PROCEDURE: Cystoscopy, left ureteroscopy with basket extraction of stones, left retrograde pyelogram with intraop interpretation of images, left ureteral stent placement. SURGEON: Bony Nunez MD BROOM MAKER: None. ANESTHESIA: General. OPERATIVE INDICATIONS: This is a 46-year-old female who underwent left-sided extracorporeal shock wave lithotripsy (ESWL) about 2-[address] scan showed what appeared to be a residual 6 mm stone in the lower pole of her left kidney as well as one small stone fragment in the left ureter. She is brought to the operating room today to remove the remainder of the stones. DESCRIPTION OF PROCEDURE: The patient was brought to the operating room and general anesthesia was induced. Prophylactic antibiotics were infused. She was placed in the dorsal lithotomy position and prepped and draped in the usual sterile fashion. A rigid cystoscope was inserted in the urethral meatus and advanced into the bladder. The guidewire was advanced up the left collecting system. I advanced the ureteral access sheath up the left collecting system. I went up the left collecting system with the flexible ureteroscope and the left kidney was thoroughly examined. Only in the lower pole did I see any stones. Within the lower pole I did not see a 6 mm stone. Instead there were was a collection of very tiny stone fragments. This indicated that the ESWL did work well in fragmenting the stone into smaller fragments. It is just that these tiny fragments did not pass. I removed some of these fragments with the basket. The remainder of the fragments were small enough to pass on their own should they move out of the lower pole. At this point a retrograde pyelogram was performed and was notable for mild left hydronephrosis with no extravasation. I withdrew the ureteroscope and no stone fragments were seen inside the ureter. I withdrew the access sheath as well and no stone fragments were seen behind the access sheath. This indicated the previously seen stone fragment in the ureter on the CT scan had already passed. At this point I utilized a guidewire to advance 6-Lithuanian x 22-32 cm JJ ureteral stent up the left collecting system. The wire was removed and there were adequate curls of the stent in left renal pelvis and in the bladder. The bladder was emptied of all fluids. This marked the conclusion of the procedure. The patient was taken out of the dorsal lithotomy position, awakened from anesthesia and transported to the recovery room in stable condition. ESTIMATED BLOOD LOSS: 5 mL. COMPLICATIONS: None. SPECIMEN: Kidney stone fragments. PLAN: The patient will follow up in urology clinic in a few weeks for stent removal. PRIMO
[2021-10-08] MEDS ORDERED: PERCOCET PO (09:04)
[2021-10-08] MEDS ORDERED: OXYB5TAB10 PO (09:04)
[2021-10-08 09:10] VITALS: BP 164/84
--- NOTE | 2021-10-08 09:32 | REP ---
INDICATION: LEFT STENT PLACEMENT. COMPARISON: None TECHNIQUE: Intraoperative fluoroscopic imaging using portable C-arm technique FINDINGS: Images demonstrate mild left hydronephrosis and satisfactory left ureteral stent placement. Total fluoroscopic time 16 seconds. IMPRESSION: Satisfactory left ureteral stent placement. <Electronically signed by Ayan Vera > 10/08/21 0928
--- NOTE | 2021-10-08 10:48 | ECGEPIP ---
[facility] Test Date: 2021-10-08 Pat Name: ANA MILES Department: Room: - Gender: Female Chief Financial Officer: bk : 1975 Requested By: Kennedy Son Order Number: [id number] Reading MD: Angel Amezquita Measurements Intervals [place] Rate: 77 P: 47 MO: 164 QRS: 68 QRSD: 82 T: 60 QT: 382 QTc: 432 Interpretive Statements Normal sinus rhythm, Within normal limits. Baseline wander. Overall no significant change compared with 07/08/2021. Electronically Signed on 10-08-2021 10:48:08 EST by Angel Amezquita
== END 2021-10-08 09:25 | disposition home or self-care (01) ==
LOC: M SDC 06:08
PROVIDERS: ATTEND Urology
DX: N20.0 Calculus of kidney (principal); I10 Essential (primary) hypertension; M06.9 Rheumatoid arthritis, unspecified; Z87.442 Personal history of urinary calculi; E66.9 Obesity, unspecified; Z68.35 Body mass index [BMI] 35.0-35.9, adult; Z91.013 Allergy to seafood; Z88.8 Allergy status to other drugs, medicaments and biological substances; Z79.899 Other long term (current) drug therapy
CPT/HCPCS: 52332; 52352; 74420; 82365; 88300; 93005; C1769; C1894; C2617; J0690; J1100; J2250; J2405; J3010; Q9961

== ENCOUNTER → 2022-03-20 | Outpatient (CLI) | payer BC, OTHER ==
[~2022-03-20] MED LIST changes: -LIDOCAINE 1% MDV 20ML VIAL SQ PRN; +LOSA100T45 PO; -LOSA100T50 PO; -LR 1,000 ML IV SCH; +OXYB5TAB10 PO; +PERCOCET PO; -ceFAZolin SOD 2 GM in IV 1 EA IV SCH
== END ==
LOC: M WHC 15:53
PROVIDERS: ATTEND Family Medicine
DX: Z12.31 Encounter for screening mammogram for malignant neoplasm of breast (principal)

== ENCOUNTER → 2022-06-17 | Outpatient (CLI) | payer OTHER | LOC: M WUC 15:38 | PROVIDERS: ATTEND Urology | DX: N20.0 Calculus of kidney (principal) ==

== ENCOUNTER → 2023-01-17 | Outpatient (CLI) | payer OTHER ==
[2023-01-17 17:11] LABS: ALT/SGPT 88 U/L (7.0-40); AST/SGOT 56 U/L (<34)
== END ==
LOC: M WUC 13:07
PROVIDERS: ATTEND Internal Medicine Rheumatology
DX: R79.89 Other specified abnormal findings of blood chemistry (principal)

== ENCOUNTER → 2023-04-30 | Outpatient (REF) | payer OTHER ==
[~2023-04-30] MED LIST changes: -LOSA100T45 PO; +LOSA100T46 PO
[2023-04-30 17:33] LABS: BASO # 0.1 10^3/uL (0.0-0.2); BASO % 0.6 % (0.0-1.0); EOS # 0.2 10^3/uL (0.0-0.5); EOS % 2.3 % (0.0-3.0); HEMATOCRIT 37.9 % (36.0-47.0); HEMOGLOBIN 12.4 g/dl (12.0-15.5); LYMPH # 3.1 10^3/uL (1.5-5.0); LYMPH % 30.4 % (24.0-44.0); MEAN CORPUSCULAR HEMOGLOBIN 27.8 pg (27.0-33.0); MEAN CORPUSCULAR HGB CONC 32.7 g/dl (32.0-36.5); MONO # 0.7 10^3/uL (0.0-0.8); NEUTROPHILS # 6.1 10^3/uL (1.5-8.5); NEUTROPHILS % 59.2 % (36.0-66.0); PLATELET COUNT, AUTOMATED 251 10^3/uL (150-450); RED BLOOD COUNT 4.46 10^6/uL (4.00-5.40); WHITE BLOOD COUNT 10.3 10^3/uL (4.0-10.0)
[2023-04-30 17:50] LABS: APPEARANCE, URINE HAZY (CLEAR); BACTERIA, URINE AUTO NEGATIVE (NEGATIVE); BILIRUBIN, URINE AUTO NEGATIVE (NEGATIVE); BLOOD, URINE BLOOD NEGATIVE (NEGATIVE); CALCIUM OXALATE CRYSTALS SMALL; COLOR, URINE YELLOW (YELLOW); GLUCOSE, URINE (UA) AUTO NEGATIVE (NEGATIVE); KETONE, URINE AUTO NEGATIVE (NEGATIVE); LEUKOCYTE ESTERASE, URINE AUTO NEGATIVE (NEGATIVE); NITRITE, URINE AUTO NEGATIVE (NEGATIVE); PROTEIN, URINE AUTO NEGATIVE (NEGATIVE); RBC, URINE AUTO 2 /HPF (0-3); SPECIFIC GRAVITY URINE AUTO 1.019 (1.002-1.035); SQUAMOUS EPITHELIAL CELL UR AU 8 /HPF (0-6); UROBILINOGEN, URINE AUTO 0.2 mg/dL (0.0-2.0); WBC, URINE AUTO 1 /HPF (0-3)
[2023-04-30 17:57] LABS: INR 0.97; PROTHROMBIN TIME 13.1 SECONDS (12.5-14.5)
[2023-04-30 17:58] LABS: PARTIAL THROMBOPLASTIN TIME 29.7 SECONDS (24.8-34.2)
[2023-04-30 18:06] LABS: ALBUMIN 3.7 G/DL (3.2-5.2); ALKALINE PHOSPHATASE 89 U/L (46-116); ALT/SGPT 46 U/L (7.0-40); AST/SGOT 28 U/L (<34); BILIRUBIN,TOTAL 0.7 MG/DL (0.3-1.2); BLOOD UREA NITROGEN 10 MG/DL (9-23); CALCIUM LEVEL 9.4 MG/DL (8.5-10.1); CARBON DIOXIDE LEVEL 27 MMOL/L (20-31); CHLORIDE LEVEL 102 MMOL/L (98-107); CREATININE FOR GFR 0.61 MG/DL (0.55-1.30); GLOMERULAR FILTRATION RATE > 60.0 (>58); GLUCOSE, FASTING 80 MG/DL (60-100); POTASSIUM SERUM 4.1 MMOL/L (3.5-5.1); SODIUM LEVEL 140 MMOL/L (136-145); TOTAL PROTEIN 6.7 G/DL (5.7-8.2)
== END ==
LOC: M SFHCADAM 15:27
PROVIDERS: ATTEND Family Medicine
DX: Z01.818 Encounter for other preprocedural examination (principal)

== ENCOUNTER → 2023-09-17 | Outpatient (CLI) | payer OTHER ==
[~2023-09-17] MED LIST changes: -OXYB5TAB10 PO; +OXYB5TAB11 PO
== END ==
LOC: M WUC 12:53
PROVIDERS: ATTEND Nurse Practitioner Family
DX: M25.572 Pain in left ankle and joints of left foot (principal)

== ENCOUNTER → 2023-11-12 | Outpatient (CLI) | payer BC | LOC: M WHC 15:46 | PROVIDERS: ATTEND Family Medicine | DX: Z12.31 Encounter for screening mammogram for malignant neoplasm of breast (principal) ==

== ENCOUNTER → 2024-03-12 | Outpatient (CLI) | payer BC ==
[~2024-03-12] MED LIST changes: -OXYB5TAB11 PO; +OXYB5TAB14 PO
== END ==
LOC: M RAD 14:31
PROVIDERS: ATTEND Nurse Practitioner Family
DX: N94.10 Unspecified dyspareunia (principal); R10.2 Pelvic and perineal pain

== ENCOUNTER → 2024-04-02 | Outpatient (CLI) | payer BC ==
[~2024-04-02] MED LIST changes: +GASTROGRAFIN SOLUTION 30ML ONE; +ISOVUE-370 76% 100ML VIAL ONE
== END ==
LOC: M PLAIMG 10:09
PROVIDERS: ATTEND Nurse Practitioner Family
DX: N83.202 Unspecified ovarian cyst, left side (principal); N20.0 Calculus of kidney; K76.0 Fatty (change of) liver, not elsewhere classified; R16.0 Hepatomegaly, not elsewhere classified; R10.2 Pelvic and perineal pain
CPT/HCPCS: 74178; Q9963; Q9967

== ENCOUNTER → 2024-04-14 | Outpatient (CLI) | payer BC ==
[~2024-04-14] MED LIST changes: -GASTROGRAFIN SOLUTION 30ML ONE; -ISOVUE-370 76% 100ML VIAL ONE; +PHEN15CA6 PO; +VALS1TAB68 PO
[2024-04-14 07:05] LABS: HEMATOCRIT 38.9 % (36.0-47.0); HEMOGLOBIN 12.6 g/dl (12.0-15.5); MEAN CORPUSCULAR HEMOGLOBIN 27.8 pg (27.0-33.0); MEAN CORPUSCULAR HGB CONC 32.4 g/dl (32.0-36.5); MEAN CORPUSCULAR VOLUME 85.7 fl (80.0-96.0); PLATELET COUNT, AUTOMATED 229 10^3/uL (150-450); RED BLOOD COUNT 4.54 10^6/uL (4.00-5.40); WHITE BLOOD COUNT 5.2 10^3/uL (4.0-10.0)
[2024-04-14 07:24] LABS: BLOOD UREA NITROGEN 15 MG/DL (9-23); CALCIUM LEVEL 9.3 MG/DL (8.5-10.1); CARBON DIOXIDE LEVEL 27 MMOL/L (20-31); CHLORIDE LEVEL 107 MMOL/L (98-107); CREATININE FOR GFR 0.64 MG/DL (0.55-1.30); GLOMERULAR FILTRATION RATE > 60.0 (>51); GLUCOSE, FASTING 122 MG/DL (60-100); POTASSIUM SERUM 4.1 MMOL/L (3.5-5.1); SODIUM LEVEL 141 MMOL/L (136-145)
== END ==
LOC: M LAB 06:05
PROVIDERS: ATTEND Family Medicine
DX: Z01.818 Encounter for other preprocedural examination (principal); N20.0 Calculus of kidney

== ENCOUNTER → 2024-04-20 | Outpatient (CLI) | payer BC | LOC: M EKG 15:50 | PROVIDERS: ATTEND Anesthesiology | DX: I10 Essential (primary) hypertension (principal) ==

== ENCOUNTER 2024-04-29 05:57 | Day surgery (SDC) | payer BC ==
[~2024-04-29] VITALS: Ht 157.5 cm; Wt 89.0 kg
[2024-04-29] MEDS ORDERED: LIDOCAINE 2% 100MG/5ML SDV (FOR ANES.) As Ordered ONE (07:05)
[2024-04-29] MEDS ORDERED: MIDAZOLAM INJ 2MG/2ML VIAL As Ordered ONE (07:05)
[2024-04-29] MEDS ORDERED: propofoL 200 MG/20 ML VIAL As Ordered ONE (07:05)
[2024-04-29] MEDS ORDERED: fentaNYL 100 MCG/2 ML INJECTION As Ordered ONE (07:05)
[2024-04-29] MEDS: LR 1,000 ML IV SCH (07:12)
[2024-04-29] MEDS: ceFAZolin SOD 2 GM in IV 1 EA IV ONE (07:35)
[2024-04-29] MEDS ORDERED: PERC5TAB12 PO (07:57)
[2024-04-29 08:30] VITALS: BP 140/79; TEMP 97; O2SAT 98
== END 2024-04-29 08:40 | disposition home or self-care (01) ==
LOC: M SDC 05:57 → M OR 06:16 → UNDOADMIN 06:16 → M SDC 08:40
PROVIDERS: ATTEND Urology
DX: N20.0 Calculus of kidney (principal); I10 Essential (primary) hypertension; Z79.899 Other long term (current) drug therapy; Z90.710 Acquired absence of both cervix and uterus
CPT/HCPCS: 50590; 74018; J0690; J2250; J3010

== ENCOUNTER → 2024-05-07 | Outpatient (CLI) | payer BC ==
[~2024-05-07] MED LIST changes: +PERC5TAB12 PO
== END ==
LOC: M WUC 11:50
PROVIDERS: ATTEND Urology
DX: N20.0 Calculus of kidney (principal)

== ENCOUNTER → 2024-08-19 | Outpatient (CLI) | payer BC ==
[2024-08-19 18:49] LABS: BLOOD UREA NITROGEN 15 MG/DL (9-23); CALCIUM LEVEL 9.6 MG/DL (8.5-10.1); CARBON DIOXIDE LEVEL 30 MMOL/L (20-31); CHLORIDE LEVEL 107 MMOL/L (98-107); CREATININE FOR GFR 0.73 MG/DL (0.55-1.30); GLOMERULAR FILTRATION RATE > 60.0 (>51); GLUCOSE, FASTING 90 MG/DL (60-100); POTASSIUM SERUM 3.8 MMOL/L (3.5-5.1); SODIUM LEVEL 144 MMOL/L (136-145)
== END ==
LOC: M WUC 11:40
PROVIDERS: ATTEND Physician Assistant
DX: N20.0 Calculus of kidney (principal)

== ENCOUNTER → 2024-09-07 | Outpatient (REF) | payer BC ==
[2024-09-07 19:06] LABS: Trichomonas vaginalis (AMP) NOT DETECTED (NEGATIVE)
[2024-09-07 19:30] LABS: GC DNA AMPLIFICATION NEGATIVE (NEGATIVE)
== END ==
LOC: M SFHCWAGY 17:02
PROVIDERS: ATTEND Nurse Practitioner Family
DX: N94.10 Unspecified dyspareunia (principal); N93.0 Postcoital and contact bleeding

== ENCOUNTER → 2024-09-17 | Outpatient (CLI) | payer BC ==
[~2024-09-17] MED LIST changes: +POTA10809 PO
[2024-09-17 19:13] LABS: HEMATOCRIT 43.3 % (36.0-47.0); HEMOGLOBIN 14.1 g/dl (12.0-15.5); MEAN CORPUSCULAR HEMOGLOBIN 27.9 pg (27.0-33.0); MEAN CORPUSCULAR HGB CONC 32.6 g/dl (32.0-36.5); MEAN CORPUSCULAR VOLUME 85.7 fl (80.0-96.0); PLATELET COUNT, AUTOMATED 271 10^3/uL (150-450); RED BLOOD COUNT 5.05 10^6/uL (4.00-5.40); WHITE BLOOD COUNT 9.2 10^3/uL (4.0-10.0)
[2024-09-17 19:34] LABS: BLOOD UREA NITROGEN 15 MG/DL (9-23); CALCIUM LEVEL 10.1 MG/DL (8.5-10.1); CARBON DIOXIDE LEVEL 31 MMOL/L (20-31); CHLORIDE LEVEL 102 MMOL/L (98-107); CREATININE FOR GFR 0.74 MG/DL (0.55-1.30); GLOMERULAR FILTRATION RATE > 60.0 (>51); GLUCOSE, FASTING 76 MG/DL (60-100); POTASSIUM SERUM 3.9 MMOL/L (3.5-5.1); SODIUM LEVEL 142 MMOL/L (136-145)
== END ==
LOC: M WUC 12:40
PROVIDERS: ATTEND Physician Assistant
DX: Z01.818 Encounter for other preprocedural examination (principal)

== ENCOUNTER → 2024-09-17 | Outpatient (CLI) | payer BC | LOC: M EKG 13:59 | PROVIDERS: ATTEND Physician Assistant | DX: Z01.818 Encounter for other preprocedural examination (principal) ==

== ENCOUNTER → 2024-10-07 | Outpatient (REF) | payer BC ==
[~2024-10-07] MED LIST changes: +ESTR10TA PV
[2024-10-07 09:44] LABS: APPEARANCE, URINE CLOUDY (CLEAR); BACTERIA, URINE AUTO 1+ (NEGATIVE); BILIRUBIN, URINE AUTO NEGATIVE (NEGATIVE); BLOOD, URINE BLOOD NEGATIVE (NEGATIVE); CALCIUM OXALATE CRYSTALS SMALL; COLOR, URINE YELLOW (YELLOW); GLUCOSE, URINE (UA) AUTO NEGATIVE (NEGATIVE); KETONE, URINE AUTO NEGATIVE (NEGATIVE); LEUKOCYTE ESTERASE, URINE AUTO 3+ (NEGATIVE); MUCUS, URINE SMALL (NEGATIVE); NITRITE, URINE AUTO NEGATIVE (NEGATIVE); PROTEIN, URINE AUTO NEGATIVE (NEGATIVE); RBC, URINE AUTO 21 /HPF (0-3); SPECIFIC GRAVITY URINE AUTO 1.017 (1.002-1.035); SQUAMOUS EPITHELIAL CELL UR AU 22 /HPF (0-6); UROBILINOGEN, URINE AUTO 0.2 mg/dL (0.0-2.0); WBC, URINE AUTO 21 /HPF (0-3)
== END ==
LOC: M SMT 09:11
PROVIDERS: ATTEND Physician Assistant
DX: Z01.818 Encounter for other preprocedural examination (principal)

== ENCOUNTER 2024-10-13 09:08 | Day surgery (SDC) | payer BC ==
[~2024-10-13] VITALS: Ht 157.5 cm; Wt 82.0 kg
[2024-10-13] MEDS ORDERED: LIDOCAINE 2% 100MG/5ML SDV (FOR ANES.) As Ordered ONE (09:29)
[2024-10-13] MEDS ORDERED: ONDANSETRON 4MG 2ML VIAL As Ordered ONE (09:29)
[2024-10-13] MEDS ORDERED: propofoL 200 MG/20 ML VIAL As Ordered ONE (09:29)
[2024-10-13] MEDS ORDERED: fentaNYL 100 MCG/2 ML INJECTION As Ordered ONE (09:31)
[2024-10-13] MEDS ORDERED: MIDAZOLAM INJ 2MG/2ML VIAL As Ordered ONE (09:31)
[2024-10-13] MEDS ORDERED: NS (Normal Saline) 0.9% 1,000 ML IV SCH (10:05)
[2024-10-13] MEDS: ceFAZolin SOD 2 GM in IV 1 EA IV ONE (11:00)
[2024-10-13] MEDS ORDERED: ACETAMINOPHEN 1000MG/100ML IV BAG As Ordered ONE (11:01)
[2024-10-13] MEDS: ISOVUE-300 61% 100ML VIAL As Ordered ONE (11:09)
[2024-10-13] MEDS ORDERED: MEPERIDINE 25 MG/ML 1ML VIAL IV PRN (11:40)
[2024-10-13] MEDS ORDERED: fentaNYL 100 MCG/2 ML INJECTION IV PRN (11:40)
[2024-10-13] MEDS: oxyCODONE 5MG TAB PO PRN (11:53)
[2024-10-13] MEDS: HYDROMORPHONE HCL 0.5 MG/ 0.5 ML SYRINGE IV PRN (11:54)
[2024-10-13] MEDS: ONDANSETRON 4MG 2ML VIAL IV PRN (11:54)
[2024-10-13] MEDS ORDERED: PERCOCET 5MG/325MG TAB PO PRN (12:05)
[2024-10-13] MEDS ORDERED: oxyBUTYnin 5 MG TAB PO PRN (12:10)
[2024-10-13 12:25] VITALS: BP 135/79; TEMP 97.3; O2SAT 93
== END 2024-10-13 12:40 | disposition home or self-care (01) ==
LOC: M SDC 09:08
PROVIDERS: ATTEND Urology
DX: N13.2 Hydronephrosis with renal and ureteral calculous obstruction (principal); I10 Essential (primary) hypertension; Z79.899 Other long term (current) drug therapy; Z90.710 Acquired absence of both cervix and uterus; Z88.8 Allergy status to other drugs, medicaments and biological substances; Z91.013 Allergy to seafood; Z90.89 Acquired absence of other organs
CPT/HCPCS: 52356; 76000; 82365; C1769; C1894; C2617; J0131; J0690; J1100; J1171; J2250; J2405; J3010; Q9967

== ENCOUNTER → 2025-03-31 | Outpatient (CLI) | payer BC ==
[~2025-03-31] MED LIST changes: -FLOM0.4C39 PO; +TAMS-18 PO
== END ==
LOC: M WHC 08:09
PROVIDERS: ATTEND Family Medicine
DX: Z12.31 Encounter for screening mammogram for malignant neoplasm of breast (principal); Z53.9 Procedure and treatment not carried out, unspecified reason

== ENCOUNTER → 2025-04-15 | Outpatient (REF) | payer BC ==
[2025-04-15 12:23] LABS: APPEARANCE, URINE CLEAR (CLEAR); BACTERIA, URINE AUTO NEGATIVE (NEGATIVE); BILIRUBIN, URINE AUTO NEGATIVE (NEGATIVE); BLOOD, URINE BLOOD NEGATIVE (NEGATIVE); GLUCOSE, URINE (UA) AUTO NEGATIVE (NEGATIVE); KETONE, URINE AUTO NEGATIVE (NEGATIVE); LEUKOCYTE ESTERASE, URINE AUTO TRACE (NEGATIVE); NITRITE, URINE AUTO NEGATIVE (NEGATIVE); PROTEIN, URINE AUTO NEGATIVE (NEGATIVE); RBC, URINE AUTO 0 /HPF (0-3); SPECIFIC GRAVITY URINE AUTO 1.012 (1.002-1.035); SQUAMOUS EPITHELIAL CELL UR AU 0 /HPF (0-6); UROBILINOGEN, URINE AUTO 0.2 mg/dL (0.0-2.0); WBC, URINE AUTO 2 /HPF (0-3)
[2025-04-15 15:57] LABS: BASO # 0.1 10^3/uL (0.0-0.2); BASO % 0.6 % (0.0-1.0); EOS # 0.3 10^3/uL (0.0-0.5); EOS % 3.5 % (0.0-3.0); LYMPH # 2.5 10^3/uL (1.5-5.0); LYMPH % 31.8 % (24.0-44.0); MONO # 0.5 10^3/uL (0.0-0.8); MONO % 6.0 % (2.0-8.0); NEUTROPHILS # 4.5 10^3/uL (1.5-8.5); NEUTROPHILS % 58.0 % (36.0-66.0); PLATELET COUNT, AUTOMATED 267 10^3/uL (150-450)
[2025-04-15 16:02] LABS: IRON (FE) 67 UG/DL (50-170)
[2025-04-15 16:03] LABS: ALT/SGPT 39 U/L (7.0-40); AST/SGOT 26 U/L (<34); CALCIUM LEVEL 9.7 MG/DL (8.5-10.1); CARBON DIOXIDE LEVEL 29 MMOL/L (20-31); CHLORIDE LEVEL 103 MMOL/L (98-107); CHOLESTEROL LEVEL 233 MG/DL (<200); CHOLESTEROL RISK RATIO 3.26 (<5); CREATININE FOR GFR 0.69 MG/DL (0.55-1.30); GLOMERULAR FILTRATION RATE > 90.0 (>51); LDL CHOLESTEROL 136.0 MG/DL (<100); MAGNESIUM LEVEL 1.9 MG/DL (1.8-2.4); NON-HDL-C 161.6 MG/DL; PERCENT SATURATION 19.9 % (13.2-45.0); POTASSIUM SERUM 4.2 MMOL/L (3.5-5.1); SODIUM LEVEL 142 MMOL/L (136-145); TRIGLYCERIDES LEVEL 128 MG/DL (<150)
[2025-04-15 16:05] LABS: TOTAL 25(OH) VITAMIN D 31.5 NG/ML (20.0-100.0)
[2025-04-15 16:38] LABS: ESTIMATED AVERAGE GLUCOSE 103.0 MG/DL (60-110)
== END ==
LOC: M LAB REF 11:26
PROVIDERS: ATTEND Nurse Practitioner Family
DX: R42 Dizziness and giddiness (principal); E55.9 Vitamin D deficiency, unspecified; I10 Essential (primary) hypertension; K75.81 Nonalcoholic steatohepatitis (NASH); E66.9 Obesity, unspecified

== ENCOUNTER → 2025-04-19 | Outpatient (CLI) | payer BC | LOC: M RAD 06:13 | PROVIDERS: ATTEND Urology | DX: N20.0 Calculus of kidney (principal) ==

== ENCOUNTER → 2025-06-16 | Outpatient (CLI) | payer BC | LOC: M WUC 11:36 | PROVIDERS: ATTEND Nurse Practitioner Family | DX: M25.552 Pain in left hip (principal) ==

== ENCOUNTER → 2025-08-29 | Outpatient (CLI) | payer BC | LOC: M WHC 06:50 | PROVIDERS: ATTEND Specialist | DX: N83.209 Unspecified ovarian cyst, unspecified side (principal) ==